=== PATIENT | male | born 2000 | race African-American/Black ===

== ENCOUNTER 2024-12-25 14:22 | Emergency (ER) | payer MEDICAID, OTHER ==
[~2024-12-25] VITALS: Ht 165.1 cm; Wt 60.0 kg
[2024-12-25 14:29] VITALS: O2SAT 99
[2024-12-25 17:08] VITALS: BP 124/80; PULSE 60; RESP 16; TEMP 36.6; O2SAT 100
== END 2024-12-25 17:15 | disposition home or self-care (01) ==
LOC: ER 15:17
DX: S63.612A Unspecified sprain of right middle finger, initial encounter (principal); S63.614A Unspecified sprain of right ring finger, initial encounter; W20.8XXA Other cause of strike by thrown, projected or falling object, initial encounter; Y93.89 Activity, other specified; Y92.89 Other specified places as the place of occurrence of the external cause; Y99.8 Other external cause status
CPT/HCPCS: 29130; 73120; 99283